=== PATIENT | female | born 1990 | race Caucasian/White ===

== ENCOUNTER 2022-11-13 19:04 | Emergency (ER) | payer BC ==
[2022-11-13 19:11] VITALS: RESP 16; BMI 46.0
[2022-11-13 19:48] VITALS: BP 119/81; PULSE 85; TEMP 99.2
[2022-11-13 20:25] LABS: HEMATOCRIT 39.7 % (32.4-45.2); HEMOGLOBIN 13.5 G/dL (10.7-15.3); MCH 28.4 pg (25.7-33.7); MCHC 34.1 g/dl (32.0-36.0); MEAN CELL VOLUME 83.3 fl (80-96); MEAN PLT VOLUME 7.5 fl (7.5-11.1); PLATELET COUNT 328.6 10^3/uL (134-434); RBC 4.76 10^6/uL (3.60-5.2); WHITE BLOOD COUNT 11.2 10^3/uL (4.0-10.8)
[2022-11-13 20:49] LABS: ALK PHOS 47 U/L (45-117); ANION GAP 8 MMOL/L (8-16); BILIRUBIN,TOTAL 0.2 mg/dl (0.2-1); BLOOD UREA NITROGEN 9.4 mg/dl (7-18); CALCIUM 9.2 mg/dl (8.5-10.1); CHLORIDE 104 mmol/L (98-107); CO2 25 mmol/L (21-32); GLUCOSE,RANDOM 93 mg/dl (74-106); POTASSIUM 3.9 mmol/L (3.5-5.1); SGOT/AST 10.3 U/L (15-37); SGPT/ALT 10.7 U/L (7-52); SODIUM 137 mmol/L (136-145); TOT PROT 6.6 g/dl (6.4-8.2)
== END 2022-11-13 21:29 | disposition home or self-care (01) ==
LOC: FER 19:04
DX: R00.2 Palpitations (principal); E66.9 Obesity, unspecified
CPT/HCPCS: 36415; 80053; 82550; 84484; 85027; 93005; 99284-25